=== PATIENT | female | born 1955 | race African-American/Black ===

== ENCOUNTER → 2017-02-20 | Emergency (ER) | payer OTHER ==
[~2017-02-20] VITALS: Ht 160 cm; Wt 64.9 kg
[~2017-02-20] MED LIST: BUCALSEP SPRAY30 ML MM; EVISTA60 MG PO; LEVITRA20 MG PO; NASONEX17 GM NS; TOPROL XL100 MG PO; TUSSI PRES-B L120 M1 PO; ZITHROMAX500 MG PO; ZYNCOF 20-400120 ML PO; [UNRECOGNIZED DRUG - MIXTURE] TP
== END | disposition home or self-care (01) ==
LOC: ER 07:42
DX: J06.9 Acute upper respiratory infection, unspecified (principal); J45.901 Unspecified asthma with (acute) exacerbation; B34.9 Viral infection, unspecified; J11.1 Influenza due to unidentified influenza virus with other respiratory manifestations; R05 Cough; R53.81 Other malaise; J98.01 Acute bronchospasm

== ENCOUNTER 2017-03-03 07:27 | Outpatient (CLI) | payer OTHER | END 2017-03-03 07:44 | disposition home or self-care (01) | LOC: MAMO-SONO 07:27 | DX: Z12.31 Encounter for screening mammogram for malignant neoplasm of breast (principal); Z87.898 Personal history of other specified conditions; N62 Hypertrophy of breast ==

== ENCOUNTER 2017-03-12 07:41 | Outpatient (CLI) | payer OTHER | END 2017-03-12 07:50 | disposition home or self-care (01) | LOC: LAB 07:41 | DX: I10 Essential (primary) hypertension (principal); E11.9 Type 2 diabetes mellitus without complications; E03.8 Other specified hypothyroidism; E78.2 Mixed hyperlipidemia ==

== ENCOUNTER 2017-05-07 08:09 | Outpatient (CLI) | payer OTHER | END 2017-05-07 08:38 | disposition home or self-care (01) | LOC: LAB 08:09 | DX: I10 Essential (primary) hypertension (principal); D68.8 Other specified coagulation defects ==

== ENCOUNTER 2017-05-07 08:21 | Outpatient (CLI) | payer OTHER | END 2017-05-07 08:38 | disposition home or self-care (01) | LOC: EKG 08:21 | DX: I10 Essential (primary) hypertension (principal) ==

== ENCOUNTER 2017-05-07 08:30 | Outpatient (CLI) | payer OTHER | END 2017-05-07 08:43 | disposition home or self-care (01) | LOC: RAD 08:30 | DX: J44.9 Chronic obstructive pulmonary disease, unspecified (principal) ==

== ENCOUNTER 2017-06-11 07:00 | Outpatient (CLI) | payer OTHER | END 2017-06-11 07:24 | disposition home or self-care (01) | LOC: LAB 07:00 | DX: I10 Essential (primary) hypertension (principal); E11.9 Type 2 diabetes mellitus without complications; E03.8 Other specified hypothyroidism; E78.2 Mixed hyperlipidemia ==

== ENCOUNTER 2017-09-22 07:03 | Outpatient (CLI) | payer OTHER | END 2017-09-22 07:20 | disposition home or self-care (01) | LOC: LAB 07:03 | DX: E03.8 Other specified hypothyroidism (principal); E78.2 Mixed hyperlipidemia; I10 Essential (primary) hypertension; E11.9 Type 2 diabetes mellitus without complications ==

== ENCOUNTER 2017-10-14 09:18 | Outpatient (CLI) | payer OTHER | END 2017-10-14 09:31 | disposition home or self-care (01) | LOC: SONOGRAMA 09:18 → MAMO-SONO 10:15 | DX: E03.8 Other specified hypothyroidism (principal); E04.1 Nontoxic single thyroid nodule ==

== ENCOUNTER 2017-10-15 08:12 | Outpatient (CLI) | payer OTHER | END 2017-10-15 09:04 | disposition home or self-care (01) | LOC: LAB 08:12 | DX: K92.1 Melena (principal); D64.0 Hereditary sideroblastic anemia; Z12.11 Encounter for screening for malignant neoplasm of colon ==

== ENCOUNTER → 2017-11-28 | Emergency (ER) | payer OTHER ==
[~2017-11-28] VITALS: Ht 167.6 cm; Wt 68.0 kg
== END | disposition home or self-care (01) ==
LOC: ER 16:11
DX: R42 Dizziness and giddiness (principal); K29.70 Gastritis, unspecified, without bleeding

== ENCOUNTER → 2018-01-06 09:53 | Outpatient (CLI) | payer OTHER | END | disposition home or self-care (01) | LOC: LAB 09:53 | DX: I10 Essential (primary) hypertension (principal); E11.9 Type 2 diabetes mellitus without complications; E03.8 Other specified hypothyroidism; E78.2 Mixed hyperlipidemia; K92.1 Melena ==

== ENCOUNTER 2018-01-06 10:34 | Outpatient (CLI) | payer OTHER | END 2018-01-06 10:36 | disposition home or self-care (01) | LOC: RAD 10:34 | DX: M12.862 Other specific arthropathies, not elsewhere classified, left knee (principal); M17.12 Unilateral primary osteoarthritis, left knee ==

== ENCOUNTER 2018-01-27 07:38 | Outpatient (CLI) | payer OTHER ==
[~2018-01-27] VITALS: Ht 167.6 cm; Wt 71.2 kg
[2018-01-27] MEDS ORDERED: LIPO-FLAVONOID1 EACH PO (09:13)
[2018-01-27] MEDS ORDERED: FLONASE16 GM NASAL (09:14)
== END 2018-01-27 08:00 | disposition home or self-care (01) ==
LOC: OFIC 805 07:38
DX: J31.0 Chronic rhinitis (principal); R42 Dizziness and giddiness

== ENCOUNTER 2018-03-01 09:51 | Emergency (ER) | payer OTHER ==
[~2018-03-01] VITALS: Ht 167.6 cm; Wt 71.2 kg
[~2018-03-01 09:51] MED LIST changes: +FLONASE16 GM NASAL; +LIPO-FLAVONOID1 EACH PO
== END 2018-03-01 10:31 | disposition home or self-care (01) ==
LOC: ER 09:51
DX: B34.9 Viral infection, unspecified (principal)

== ENCOUNTER 2018-04-02 10:34 | Emergency (ER) | payer OTHER ==
[~2018-04-02] VITALS: Ht 167.6 cm; Wt 71.7 kg
[2018-04-02] MEDS ORDERED: VENTOLIN HFA18 GM IH (14:49)
[2018-04-02] MEDS ORDERED: SYMBICORT 16010.2 GM IH (14:49)
== END 2018-04-02 15:09 | disposition home or self-care (01) ==
LOC: ER 10:34
DX: J45.998 Other asthma (principal)

== ENCOUNTER 2018-04-14 06:47 | Outpatient (CLI) | payer OTHER ==
[~2018-04-14 06:47] MED LIST changes: +SYMBICORT 16010.2 GM IH; +VENTOLIN HFA18 GM IH
== END 2018-04-14 06:53 | disposition home or self-care (01) ==
LOC: LAB 06:47
DX: I10 Essential (primary) hypertension (principal); E11.9 Type 2 diabetes mellitus without complications; E03.8 Other specified hypothyroidism; E78.2 Mixed hyperlipidemia; K92.1 Melena; D64.0 Hereditary sideroblastic anemia

== ENCOUNTER 2018-04-15 10:14 | Outpatient (CLI) | payer OTHER | END 2018-04-15 13:11 | disposition home or self-care (01) | LOC: LAB 10:14 | DX: I10 Essential (primary) hypertension (principal); E11.9 Type 2 diabetes mellitus without complications; E03.8 Other specified hypothyroidism; E78.2 Mixed hyperlipidemia; K92.1 Melena; Z12.11 Encounter for screening for malignant neoplasm of colon ==

== ENCOUNTER 2018-04-21 10:43 | Outpatient (CLI) | payer OTHER | END 2018-04-21 10:54 | disposition home or self-care (01) | LOC: MAMO-SONO 10:43 | DX: Z12.31 Encounter for screening mammogram for malignant neoplasm of breast (principal); Z87.898 Personal history of other specified conditions; N63.10 Unspecified lump in the right breast, unspecified quadrant; N63.20 Unspecified lump in the left breast, unspecified quadrant ==

== ENCOUNTER 2018-05-25 07:32 | Outpatient (CLI) | payer OTHER | END 2018-05-25 07:45 | disposition home or self-care (01) | LOC: MRI 07:32 | DX: G93.89 Other specified disorders of brain (principal) | CPT/HCPCS: 70544 ==

== ENCOUNTER 2018-07-28 06:53 | Outpatient (CLI) | payer OTHER | END 2018-07-28 06:59 | disposition home or self-care (01) | LOC: LAB 06:53 | DX: E03.8 Other specified hypothyroidism (principal); E78.2 Mixed hyperlipidemia; E11.9 Type 2 diabetes mellitus without complications; I10 Essential (primary) hypertension ==

== ENCOUNTER → 2018-08-20 | Outpatient (CLI) | payer OTHER | END | disposition home or self-care (01) | LOC: MAMO-SONO 07:15 → SONOGRAMA 07:31 | DX: E03.8 Other specified hypothyroidism (principal); E04.8 Other specified nontoxic goiter ==

== ENCOUNTER 2018-08-25 07:41 | Outpatient (CLI) | payer OTHER | END 2018-08-25 08:00 | disposition home or self-care (01) | LOC: OFIC 805 07:41 | DX: H81.42 Vertigo of central origin, left ear (principal); R42 Dizziness and giddiness ==

== ENCOUNTER 2018-09-23 13:58 | Emergency (ER) | payer OTHER ==
[~2018-09-23] VITALS: Ht 167.6 cm; Wt 75.3 kg
== END 2018-09-23 17:43 | disposition home or self-care (01) ==
LOC: ER 13:58
DX: S52.122A Displaced fracture of head of left radius, initial encounter for closed fracture (principal); W18.09XA Striking against other object with subsequent fall, initial encounter; Y93.01 Activity, walking, marching and hiking; Y92.488 Other paved roadways as the place of occurrence of the external cause; Y99.8 Other external cause status

== ENCOUNTER 2018-09-27 08:20 | Emergency (ER) | payer OTHER ==
[~2018-09-27] VITALS: Ht 167.6 cm; Wt 73.5 kg
[2018-09-27] MEDS ORDERED: BRILINTA60 MG (08:32)
[2018-09-27] MEDS ORDERED: NORVASC5 MG (08:32)
== END 2018-09-27 09:47 | disposition home or self-care (01) ==
LOC: ER 08:20
DX: M25.522 Pain in left elbow (principal); S52.122D Displaced fracture of head of left radius, subsequent encounter for closed fracture with routine healing; W18.09XD Striking against other object with subsequent fall, subsequent encounter

== ENCOUNTER → 2018-10-28 06:14 | Outpatient (CLI) | payer OTHER ==
[~2018-10-28 06:14] MED LIST changes: +BRILINTA60 MG; +NORVASC5 MG
== END | disposition home or self-care (01) ==
LOC: LAB 06:14
DX: E03.8 Other specified hypothyroidism (principal); E78.2 Mixed hyperlipidemia; E11.9 Type 2 diabetes mellitus without complications; I10 Essential (primary) hypertension

== ENCOUNTER → 2018-12-21 | Outpatient (CLI) | payer OTHER | END | disposition home or self-care (01) | LOC: RAD 07:39 | DX: M25.512 Pain in left shoulder (principal) ==

== ENCOUNTER 2019-01-26 09:00 | Outpatient (CLI) | payer OTHER | END 2019-01-26 09:04 | disposition home or self-care (01) | LOC: SONOGRAMA 09:00 | DX: M75.22 Bicipital tendinitis, left shoulder (principal); M75.82 Other shoulder lesions, left shoulder ==

== ENCOUNTER 2019-01-26 10:12 | Outpatient (CLI) | payer OTHER | END 2019-01-26 10:15 | disposition home or self-care (01) | LOC: NUCLEAR 10:12 | DX: E55.9 Vitamin D deficiency, unspecified (principal); M81.0 Age-related osteoporosis without current pathological fracture ==

== ENCOUNTER 2019-03-16 08:05 | Outpatient (CLI) | payer OTHER | END 2019-03-16 15:00 | disposition home or self-care (01) | LOC: LAB 08:05 | DX: E11.9 Type 2 diabetes mellitus without complications (principal); E03.8 Other specified hypothyroidism; E78.2 Mixed hyperlipidemia; I10 Essential (primary) hypertension ==

== ENCOUNTER 2019-03-27 14:23 | Emergency (ER) | payer OTHER ==
[~2019-03-27] VITALS: Ht 167.6 cm; Wt 72.6 kg
[2019-03-27] MEDS ORDERED: LOTREL 10-20 M1 EACH (15:10)
== END 2019-03-27 18:21 | disposition home or self-care (01) ==
LOC: ER 14:23
DX: J06.9 Acute upper respiratory infection, unspecified (principal)

== ENCOUNTER 2019-03-28 08:23 | Outpatient (CLI) | payer OTHER ==
[~2019-03-28 08:23] MED LIST changes: +LOTREL 10-20 M1 EACH
== END 2019-03-28 08:27 | disposition home or self-care (01) ==
LOC: LAB 08:23
DX: J11.1 Influenza due to unidentified influenza virus with other respiratory manifestations (principal)

== ENCOUNTER 2019-04-08 02:09 | Emergency (ER) | payer OTHER ==
[~2019-04-08] VITALS: Ht 167.6 cm; Wt 72.6 kg
== END 2019-04-08 04:30 | disposition home or self-care (01) ==
LOC: ER 02:09
DX: R00.0 Tachycardia, unspecified (principal)

== ENCOUNTER → 2019-06-20 | Outpatient (CLI) | payer OTHER | END | disposition home or self-care (01) | LOC: MAMO-SONO 07:45 → RAD 08:13 → MRI 08:15 | DX: Z12.31 Encounter for screening mammogram for malignant neoplasm of breast (principal); Z87.898 Personal history of other specified conditions; N63.11 Unspecified lump in the right breast, upper outer quadrant; J44.1 Chronic obstructive pulmonary disease with (acute) exacerbation | CPT/HCPCS: 70544 ==

== ENCOUNTER → 2019-06-24 06:55 | Outpatient (CLI) | payer OTHER | END | disposition home or self-care (01) | LOC: LAB 06:55 | DX: E03.8 Other specified hypothyroidism (principal); I10 Essential (primary) hypertension; E78.2 Mixed hyperlipidemia; E11.9 Type 2 diabetes mellitus without complications ==

== ENCOUNTER 2019-06-25 09:49 | Outpatient (CLI) | payer OTHER | END 2019-06-25 15:45 | disposition home or self-care (01) | LOC: LAB 09:49 | DX: I10 Essential (primary) hypertension (principal); E11.9 Type 2 diabetes mellitus without complications; E03.8 Other specified hypothyroidism; E78.2 Mixed hyperlipidemia ==

== ENCOUNTER 2019-07-27 07:16 | Outpatient (CLI) | payer OTHER | END 2019-07-27 07:20 | disposition home or self-care (01) | LOC: SONOGRAMA 07:16 | PROVIDERS: ATTEND Internal Medicine Cardiovascular Disease | DX: E03.8 Other specified hypothyroidism (principal); E04.2 Nontoxic multinodular goiter ==

== ENCOUNTER 2019-07-28 07:16 | Outpatient (CLI) | payer OTHER | END 2019-07-28 07:27 | disposition home or self-care (01) | LOC: SONOGRAMA 07:16 | PROVIDERS: ATTEND Internal Medicine Cardiovascular Disease | DX: R10.84 Generalized abdominal pain (principal) ==

== ENCOUNTER 2019-07-29 00:06 | Emergency (ER) | payer OTHER ==
[~2019-07-29] VITALS: Ht 167.6 cm; Wt 68.0 kg
== END 2019-07-29 01:49 | disposition home or self-care (01) ==
LOC: ER 00:06
DX: R00.2 Palpitations (principal)

== ENCOUNTER 2019-11-02 06:57 | Outpatient (CLI) | payer OTHER | END 2019-11-02 07:02 | disposition home or self-care (01) | LOC: LAB 06:57 | PROVIDERS: ATTEND Internal Medicine Cardiovascular Disease | DX: E03.8 Other specified hypothyroidism (principal); I10 Essential (primary) hypertension; E11.9 Type 2 diabetes mellitus without complications; E78.2 Mixed hyperlipidemia ==

== ENCOUNTER → 2019-11-11 | Outpatient (CLI) | payer OTHER | END | disposition home or self-care (01) | LOC: RAD 07:36 | PROVIDERS: ATTEND Specialist | DX: M54.2 Cervicalgia (principal); M62.838 Other muscle spasm; M54.6 Pain in thoracic spine ==

== ENCOUNTER 2019-12-15 07:04 | Outpatient (CLI) | payer OTHER | END 2019-12-15 07:13 | disposition home or self-care (01) | LOC: LAB 07:04 | PROVIDERS: ATTEND Internal Medicine Cardiovascular Disease | DX: I11.9 Hypertensive heart disease without heart failure (principal); Z12.11 Encounter for screening for malignant neoplasm of colon; E78.2 Mixed hyperlipidemia ==

== ENCOUNTER 2020-03-12 07:00 | Outpatient (CLI) | payer OTHER | END 2020-03-12 07:05 | disposition home or self-care (01) | LOC: LAB 07:00 | PROVIDERS: ATTEND Internal Medicine Cardiovascular Disease | DX: E03.8 Other specified hypothyroidism (principal); I10 Essential (primary) hypertension; E11.9 Type 2 diabetes mellitus without complications; E78.2 Mixed hyperlipidemia; E55.9 Vitamin D deficiency, unspecified ==

== ENCOUNTER → 2020-07-12 07:02 | Outpatient (CLI) | payer OTHER | END | disposition home or self-care (01) | LOC: LAB 07:02 | PROVIDERS: ATTEND Internal Medicine Cardiovascular Disease | DX: I10 Essential (primary) hypertension (principal); E11.9 Type 2 diabetes mellitus without complications; E03.8 Other specified hypothyroidism; E78.2 Mixed hyperlipidemia; Z12.11 Encounter for screening for malignant neoplasm of colon ==

== ENCOUNTER 2020-07-14 09:09 | Outpatient (CLI) | payer OTHER | END 2020-07-14 09:54 | disposition home or self-care (01) | LOC: RAD 09:09 | DX: S79.812A Other specified injuries of left hip, initial encounter (principal); S79.811A Other specified injuries of right hip, initial encounter ==

== ENCOUNTER → 2020-08-01 | Outpatient (CLI) | payer OTHER | END | disposition home or self-care (01) | LOC: MAMO-SONO 07:45 | PROVIDERS: ATTEND Internal Medicine Cardiovascular Disease | DX: Z12.31 Encounter for screening mammogram for malignant neoplasm of breast (principal); Z87.898 Personal history of other specified conditions; N63.11 Unspecified lump in the right breast, upper outer quadrant; E03.8 Other specified hypothyroidism; E04.8 Other specified nontoxic goiter ==

== ENCOUNTER 2020-09-20 07:20 | Outpatient (CLI) | payer OTHER | END 2020-09-20 07:32 | disposition home or self-care (01) | LOC: RAD 07:20 | PROVIDERS: ATTEND Physical Medicine & Rehabilitation | DX: M25.561 Pain in right knee (principal); M17.11 Unilateral primary osteoarthritis, right knee ==

== ENCOUNTER → 2020-11-06 | Outpatient (CLI) | payer OTHER | END | disposition home or self-care (01) | LOC: RAD 08:16 | PROVIDERS: ATTEND Physical Medicine & Rehabilitation | DX: M19.042 Primary osteoarthritis, left hand (principal) ==

== ENCOUNTER → 2020-11-22 07:55 | Outpatient (CLI) | payer OTHER | END | disposition home or self-care (01) | LOC: LAB 07:55 | PROVIDERS: ATTEND Internal Medicine Cardiovascular Disease | DX: I10 Essential (primary) hypertension (principal); E11.9 Type 2 diabetes mellitus without complications; E03.8 Other specified hypothyroidism; E78.2 Mixed hyperlipidemia ==

== ENCOUNTER 2020-12-10 08:17 | Outpatient (CLI) | payer OTHER | END 2020-12-10 08:20 | disposition home or self-care (01) | LOC: RAD 08:17 | PROVIDERS: ATTEND Internal Medicine Cardiovascular Disease | DX: M79.672 Pain in left foot (principal); M12.88 Other specific arthropathies, not elsewhere classified, other specified site ==

== ENCOUNTER 2021-04-25 07:14 | Outpatient (CLI) | payer OTHER | END 2021-04-25 10:34 | disposition home or self-care (01) | LOC: LAB 07:14 | PROVIDERS: ATTEND Internal Medicine Cardiovascular Disease | DX: I10 Essential (primary) hypertension (principal); E11.9 Type 2 diabetes mellitus without complications; E03.9 Hypothyroidism, unspecified; E78.2 Mixed hyperlipidemia; Z12.11 Encounter for screening for malignant neoplasm of colon; E55.9 Vitamin D deficiency, unspecified ==

== ENCOUNTER → 2021-04-27 | Emergency (ER) | payer OTHER ==
[~2021-04-27] VITALS: Ht 167.6 cm; Wt 61.2 kg
== END ==
LOC: ER 21:20
DX: G44.209 Tension-type headache, unspecified, not intractable (principal); I10 Essential (primary) hypertension

== ENCOUNTER 2021-05-29 08:19 | Outpatient (CLI) | payer OTHER | END 2021-05-29 08:29 | disposition home or self-care (01) | LOC: MRI 08:19 | PROVIDERS: ATTEND Physical Medicine & Rehabilitation | DX: M25.561 Pain in right knee (principal); I67.1 Cerebral aneurysm, nonruptured | CPT/HCPCS: 70544; 73721 ==

== ENCOUNTER 2021-07-05 10:51 | Outpatient (CLI) | payer OTHER | END 2021-07-05 10:52 | disposition home or self-care (01) | LOC: NUCLEAR 10:51 | PROVIDERS: ATTEND Internal Medicine Cardiovascular Disease | DX: M81.0 Age-related osteoporosis without current pathological fracture (principal); E55.9 Vitamin D deficiency, unspecified; Z88.6 Allergy status to analgesic agent ==

== ENCOUNTER 2021-08-15 07:22 | Outpatient (CLI) | payer OTHER | END 2021-08-15 07:27 | disposition home or self-care (01) | LOC: LAB 07:22 | PROVIDERS: ATTEND Internal Medicine Endocrinology, Diabetes & Metabolism | DX: E06.3 Autoimmune thyroiditis (principal) ==

== ENCOUNTER 2021-08-15 07:59 | Outpatient (CLI) | payer OTHER | END 2021-08-15 08:09 | disposition home or self-care (01) | LOC: SONOGRAMA 07:59 | PROVIDERS: ATTEND Internal Medicine Endocrinology, Diabetes & Metabolism | DX: E04.2 Nontoxic multinodular goiter (principal) ==

== ENCOUNTER 2021-08-20 10:40 | Outpatient (CLI) | payer OTHER | END 2021-08-20 10:45 | disposition home or self-care (01) | LOC: MAMO-SONO 10:40 | PROVIDERS: ATTEND Internal Medicine Cardiovascular Disease | DX: N63.11 Unspecified lump in the right breast, upper outer quadrant (principal) ==

== ENCOUNTER 2021-08-27 06:54 | Outpatient (CLI) | payer OTHER | END 2021-08-27 06:55 | disposition home or self-care (01) | LOC: LAB 06:54 | PROVIDERS: ATTEND Internal Medicine Cardiovascular Disease | DX: I10 Essential (primary) hypertension (principal); E11.9 Type 2 diabetes mellitus without complications; E03.9 Hypothyroidism, unspecified; E78.2 Mixed hyperlipidemia ==

== ENCOUNTER 2021-11-15 07:38 | Outpatient (CLI) | payer OTHER | END 2021-11-15 07:42 | disposition home or self-care (01) | LOC: RAD 07:38 | PROVIDERS: ATTEND Physical Medicine & Rehabilitation | DX: M54.50 Low back pain, unspecified (principal); Z87.81 Personal history of (healed) traumatic fracture ==

== ENCOUNTER 2021-12-04 15:36 | Emergency (ER) | payer OTHER ==
[~2021-12-04] VITALS: Ht 167.6 cm; Wt 70.3 kg
[2021-12-04] MEDS ORDERED: DICLOFENAC SODI75 MG PO (19:18)
== END 2021-12-04 19:16 | disposition home or self-care (01) ==
LOC: ER 15:36
DX: M54.9 Dorsalgia, unspecified (principal); I10 Essential (primary) hypertension; Z86.73 Personal history of transient ischemic attack (TIA), and cerebral infarction without residual deficits; Z88.0 Allergy status to penicillin; Z20.822 Contact with and (suspected) exposure to COVID-19

== ENCOUNTER 2022-07-03 07:28 | Outpatient (CLI) | payer OTHER ==
[~2022-07-03 07:28] MED LIST changes: +DICLOFENAC SODI75 MG PO
== END 2022-07-03 07:38 | disposition home or self-care (01) ==
LOC: RAD 07:28
PROVIDERS: ATTEND Physical Medicine & Rehabilitation
DX: E04.8 Other specified nontoxic goiter (principal); M54.2 Cervicalgia

== ENCOUNTER 2022-09-22 08:10 | Outpatient (CLI) | payer OTHER | END 2022-09-22 08:21 | disposition home or self-care (01) | LOC: MAMO-SONO 08:10 | PROVIDERS: ATTEND Internal Medicine Cardiovascular Disease | DX: Z12.31 Encounter for screening mammogram for malignant neoplasm of breast (principal); N63.12 Unspecified lump in the right breast, upper inner quadrant; M54.6 Pain in thoracic spine ==

== ENCOUNTER 2023-03-17 07:52 | Outpatient (CLI) | payer OTHER | END 2023-03-17 07:54 | disposition home or self-care (01) | LOC: SONOGRAMA 07:52 | PROVIDERS: ATTEND Physical Medicine & Rehabilitation | DX: M25.511 Pain in right shoulder (principal) ==

== ENCOUNTER 2023-04-01 07:59 | Outpatient (CLI) | payer OTHER | END 2023-04-01 08:06 | disposition home or self-care (01) | LOC: SONOGRAMA 07:59 | PROVIDERS: ATTEND Internal Medicine Endocrinology, Diabetes & Metabolism | DX: E04.8 Other specified nontoxic goiter (principal) ==

== ENCOUNTER 2023-10-29 08:46 | Outpatient (CLI) | payer OTHER | END 2023-10-29 08:52 | disposition home or self-care (01) | LOC: RAD 08:46 | PROVIDERS: ATTEND Internal Medicine Cardiovascular Disease | DX: M12.9 Arthropathy, unspecified (principal); M10.9 Gout, unspecified ==

== ENCOUNTER 2024-01-07 08:53 | Outpatient (CLI) | payer OTHER | END 2024-01-07 09:12 | disposition home or self-care (01) | LOC: SONOGRAMA 08:53 | PROVIDERS: ATTEND Internal Medicine Cardiovascular Disease | DX: M12.9 Arthropathy, unspecified (principal) ==

== ENCOUNTER 2024-02-04 07:56 | Outpatient (CLI) | payer OTHER | END 2024-02-04 08:03 | disposition home or self-care (01) | LOC: RAD 07:56 | PROVIDERS: ATTEND Physical Medicine & Rehabilitation | DX: M17.11 Unilateral primary osteoarthritis, right knee (principal) ==

== ENCOUNTER 2024-04-21 07:41 | Outpatient (CLI) | payer OTHER | END 2024-04-21 07:45 | disposition home or self-care (01) | LOC: SONOGRAMA 07:41 | PROVIDERS: ATTEND Internal Medicine Endocrinology, Diabetes & Metabolism | DX: E04.8 Other specified nontoxic goiter (principal) ==

== ENCOUNTER 2024-10-31 07:48 | Outpatient (CLI) | payer OTHER | END 2024-10-31 07:53 | disposition home or self-care (01) | LOC: RAD 07:48 | PROVIDERS: ATTEND Internal Medicine Cardiovascular Disease | DX: M19.90 Unspecified osteoarthritis, unspecified site (principal) ==